=== PATIENT | female | born 1965 | race Caucasian/White ===

== ENCOUNTER 2016-11-16 12:27 | Outpatient (CLI) | payer MEDICARE, OTHER ==
[2016-09-21 18:38] VITALS: BP 132/68
== END 2016-11-16 12:30 ==
LOC: LAB 12:27
PROVIDERS: ATTEND Internal Medicine Cardiovascular Disease
DX: Z51.81 Encounter for therapeutic drug level monitoring (principal); Z79.01 Long term (current) use of anticoagulants; Z95.2 Presence of prosthetic heart valve
CPT/HCPCS: 36415; 85610

== ENCOUNTER 2016-12-06 14:09 | Outpatient (CLI) | payer MEDICARE, OTHER ==
[2016-09-21 18:38] VITALS: BP 132/68
== END 2016-12-06 14:20 ==
LOC: LAB 14:09
PROVIDERS: ATTEND Internal Medicine Cardiovascular Disease
DX: Z51.81 Encounter for therapeutic drug level monitoring (principal); Z79.01 Long term (current) use of anticoagulants; Z95.2 Presence of prosthetic heart valve
CPT/HCPCS: 36415; 85610

== ENCOUNTER 2016-12-26 12:11 | Outpatient (CLI) | payer MEDICARE, OTHER ==
[2016-09-21 18:38] VITALS: BP 132/68
== END 2016-12-26 12:12 ==
LOC: LAB 12:11
PROVIDERS: ATTEND Internal Medicine Cardiovascular Disease
DX: Z51.81 Encounter for therapeutic drug level monitoring (principal); Z79.01 Long term (current) use of anticoagulants; Z95.2 Presence of prosthetic heart valve
CPT/HCPCS: 36415; 85610

== ENCOUNTER 2017-01-24 14:11 | Outpatient (CLI) | payer MEDICARE, OTHER ==
[2016-09-21 18:38] VITALS: BP 132/68
== END 2017-01-24 14:12 ==
LOC: LAB 14:11
PROVIDERS: ATTEND Internal Medicine Cardiovascular Disease
DX: Z51.81 Encounter for therapeutic drug level monitoring (principal); Z79.01 Long term (current) use of anticoagulants; Z95.2 Presence of prosthetic heart valve
CPT/HCPCS: 36415; 85610

== ENCOUNTER 2017-02-14 13:14 | Outpatient (CLI) | payer MEDICARE, OTHER ==
[2016-09-21 18:38] VITALS: BP 132/68
== END 2017-02-14 13:15 ==
LOC: LAB 13:14
PROVIDERS: ATTEND Internal Medicine Cardiovascular Disease
DX: Z51.81 Encounter for therapeutic drug level monitoring (principal); Z79.01 Long term (current) use of anticoagulants; Z95.2 Presence of prosthetic heart valve
CPT/HCPCS: 36415; 85610

== ENCOUNTER 2017-02-22 09:48 | Outpatient (CLI) | payer MEDICARE, OTHER ==
[2016-09-21 18:38] VITALS: BP 132/68
== END 2017-02-22 09:50 ==
LOC: LAB 09:48
PROVIDERS: ATTEND Internal Medicine Cardiovascular Disease
DX: Z51.81 Encounter for therapeutic drug level monitoring (principal); Z79.01 Long term (current) use of anticoagulants; Z95.2 Presence of prosthetic heart valve
CPT/HCPCS: 36415; 85610

== ENCOUNTER 2017-03-01 15:47 | Outpatient (CLI) | payer MEDICARE, OTHER ==
[2016-09-21 18:38] VITALS: BP 132/68
--- NOTE | 2017-03-13 11:06 | OP Clinic Progress Note ---
REFERRING PHYSICIAN: Dr. Dee Ko REASON FOR VISIT: This 51-year-old is seen with epistaxis on the left side. She does have a left nasal septal deviation. She takes Coumadin for a mitral valve. I cauterized the left nasal septum with silver nitrate. I did this very lightly and mildly. I have also shown her how to keep cotton with antibiotic ointment on it for ongoing care. PLAN: She will follow up in about 2 weeks in the office. cc: Dr. Dee HORTON
== END 2017-03-01 15:50 ==
LOC: ENT 15:47
PROVIDERS: ATTEND Otolaryngology
DX: Z51.81 Encounter for therapeutic drug level monitoring (principal); Z79.01 Long term (current) use of anticoagulants; R04.0 Epistaxis
CPT/HCPCS: G0463

== ENCOUNTER 2017-03-08 08:05 | Outpatient (CLI) | payer MEDICARE, OTHER ==
[2016-09-21 18:38] VITALS: BP 132/68
== END 2017-03-08 08:06 ==
LOC: LAB 08:05
PROVIDERS: ATTEND Internal Medicine Cardiovascular Disease
DX: Z51.81 Encounter for therapeutic drug level monitoring (principal); Z79.01 Long term (current) use of anticoagulants; Z95.2 Presence of prosthetic heart valve
CPT/HCPCS: 36415; 85610

== ENCOUNTER 2017-03-28 12:18 | Outpatient (CLI) | payer MEDICARE, OTHER ==
[2016-09-21 18:38] VITALS: BP 132/68
== END 2017-03-28 12:20 ==
LOC: CARD 12:18
PROVIDERS: ATTEND Internal Medicine Cardiovascular Disease
DX: Z95.2 Presence of prosthetic heart valve (principal)
CPT/HCPCS: G0463

== ENCOUNTER 2017-03-29 13:38 | Outpatient (CLI) | payer MEDICARE, OTHER ==
[2016-09-21 18:38] VITALS: BP 132/68
== END 2017-03-29 13:40 ==
LOC: LAB 13:38
PROVIDERS: ATTEND Internal Medicine Cardiovascular Disease
DX: Z95.2 Presence of prosthetic heart valve (principal); Z79.01 Long term (current) use of anticoagulants
CPT/HCPCS: 36415; 85610

== ENCOUNTER 2017-04-14 12:59 | Outpatient (CLI) | payer MEDICARE, OTHER ==
[2016-09-21 18:38] VITALS: BP 132/68
== END 2017-04-14 13:00 ==
LOC: LAB 12:59
PROVIDERS: ATTEND Internal Medicine Cardiovascular Disease
DX: Z95.2 Presence of prosthetic heart valve (principal); Z79.01 Long term (current) use of anticoagulants
CPT/HCPCS: 36415; 85610

== ENCOUNTER 2017-05-01 14:47 | Outpatient (CLI) | payer MEDICARE, OTHER ==
[2016-09-21 18:38] VITALS: BP 132/68
== END 2017-05-01 15:00 ==
LOC: LAB 14:47
PROVIDERS: ATTEND Internal Medicine Cardiovascular Disease
DX: Z95.2 Presence of prosthetic heart valve (principal)
CPT/HCPCS: 36415; 85610

== ENCOUNTER 2017-05-04 09:42 | Outpatient (CLI) | payer MEDICARE, OTHER ==
[2016-09-21 18:38] VITALS: BP 132/68
[2017-05-04 10:03] LABS: BASOPHILS % 0.7 (0.0-1.5); EOSINOPHILS % 1.7 % (0.0-6.8); MEAN CORPUSCULAR HEMOGLOBIN 27.6 pg (28.0-34.0); MEAN CORPUSCULAR VOLUME 85.3 fl (80.0-100.0); MONOCYTES % 9.1 % (0.0-11.0)
[2017-05-04 10:32] LABS: eGFR (African) > 60; eGFR (Non-African) > 60
== END 2017-05-04 10:00 ==
LOC: LAB 09:42
PROVIDERS: ATTEND Family Medicine
DX: R63.4 Abnormal weight loss (principal)
CPT/HCPCS: 36415; 80053; 84443; 85025

== ENCOUNTER 2017-05-30 11:14 | Outpatient (CLI) | payer MEDICARE, OTHER ==
[2016-09-21 18:38] VITALS: BP 132/68
== END 2017-05-30 11:15 ==
LOC: LAB 11:14
PROVIDERS: ATTEND Internal Medicine Cardiovascular Disease
DX: Z95.2 Presence of prosthetic heart valve (principal)
CPT/HCPCS: 36415; 85610

== ENCOUNTER 2017-06-09 15:04 | Outpatient (CLI) | payer MEDICARE, OTHER ==
[2016-09-21 18:38] VITALS: BP 132/68
[2017-06-09 15:59] LABS: eGFR (African) > 60; eGFR (Non-African) > 60
== END 2017-06-09 15:05 ==
LOC: LAB 15:04
PROVIDERS: ATTEND Family Medicine
DX: R63.4 Abnormal weight loss (principal)
CPT/HCPCS: 36415; 80048

== ENCOUNTER 2017-06-12 07:59 | Outpatient (CLI) | payer MEDICARE, OTHER ==
[2016-09-21 18:38] VITALS: BP 132/68
--- NOTE | 2017-06-12 14:51 | Diagnostic Imaging Report ---
TAMMIE GOLDEN [facility] [address] [facility] [address] [place], [place]. [address] Report Submission Date: Jun 12, 2017 12:29:58 PM CDT Patient Study Name: SARAH VANG Date: Jun 12, 2017 9:49:31 AM CDT Modality Type: CT\SR Gender: F Description: CT CHEST, ABD & PELVIS W/ CON : 63 Institution: [facility] Physician: TAMMIE GOLDEN Examination: CT chest/abdomen/pelvis History: ChWeight loss Comparison exams: None available Technique: CT chest/abdomen/pelvis with contrast protocol Findings: Chest: Scattered apical emphysematous changes. Bilateral posterior and lung base atelectasis. Minimal lung base scarring. No evidence for spiculated lesion or suspicious nodule. No posterior pleural thickening. Anterior mediastinum and sammy do not demonstrate pathologic adenopathy or suspicious mass. Thoracic aorta demonstrates peripheral atherosclerotic disease. Cardiac silhouette not enlarged. Osseous structures demonstrate degenerative type changes. Sternotomy wires. Sagital reconstruction demonstrates numerous mid thoracic anterior compression deformities. Lower neck structures without evidence for mass/ lesion. No axillary region pathologic adenopathy Abdomen/pelvis: Liver, spleen, adrenals, kidneys and pancreas are without gross irregularity. No abnormal enhancement. Surgical clips gallbladder fossa. Abdominal aorta demonstrates peripheral atherosclerotic disease. No periaortic adenopathy. Bowel mucosa/lumen without irregularity. Stool and air throughout the large bowel limits sensitivity. No mesenteric inflammatory changes. No free fluid. Osseous structures demonstrate degenerative changes. T12 superior endplates narrowing - identified on sagittal reconstruction. Impression: No evidence for thoracic or abdominal mass /lesion. No evidence for pathologic appearing adenopathy. Thoracic vertebral body compression deformities: Chronicity indeterminate without older exams. Limited evaluation of the bowel due to technique. If concern exist for bowel being etiology for weight loss - recommend obtaining colonoscopy. Electronically signed on Jun 12, 2017 12:29:58 PM CDT by: Pineda HORTON
== END 2017-06-12 08:00 ==
LOC: RAD 07:59
PROVIDERS: ATTEND Family Medicine
DX: R63.4 Abnormal weight loss (principal)
CPT/HCPCS: 36415; 71260; 74177; 85610; Q9966; A9698

== ENCOUNTER 2017-06-21 10:40 | Outpatient (CLI) | payer MEDICARE, OTHER ==
[2016-09-21 18:38] VITALS: BP 132/68
== END 2017-06-21 10:42 ==
LOC: LAB 10:40
PROVIDERS: ATTEND Internal Medicine Cardiovascular Disease
DX: Z95.2 Presence of prosthetic heart valve (principal)
CPT/HCPCS: 36415; 85610

== ENCOUNTER 2017-07-05 10:51 | Outpatient (CLI) | payer MEDICARE, OTHER ==
[2016-09-21 18:38] VITALS: BP 132/68
== END 2017-07-05 10:52 ==
LOC: LAB 10:51
PROVIDERS: ATTEND Internal Medicine Cardiovascular Disease
DX: Z95.2 Presence of prosthetic heart valve (principal)
CPT/HCPCS: 36415; 85610

== ENCOUNTER 2017-07-19 13:02 | Outpatient (CLI) | payer MEDICARE, OTHER ==
[2016-09-21 18:38] VITALS: BP 132/68
== END 2017-07-19 13:03 ==
LOC: LAB 13:02
PROVIDERS: ATTEND Internal Medicine Cardiovascular Disease
DX: Z95.2 Presence of prosthetic heart valve (principal)
CPT/HCPCS: 36415; 85610

== ENCOUNTER 2017-08-02 13:16 | Outpatient (CLI) | payer MEDICARE, OTHER ==
[2016-09-21 18:38] VITALS: BP 132/68
== END 2017-08-02 13:17 ==
LOC: LAB 13:16
PROVIDERS: ATTEND Family Medicine
DX: R11.0 Nausea (principal); R63.4 Abnormal weight loss
CPT/HCPCS: 36415; 82784; 83516

== ENCOUNTER 2017-08-10 11:54 | Outpatient (CLI) | payer MEDICARE, OTHER ==
[2016-09-21 18:38] VITALS: BP 132/68
== END 2017-08-10 11:55 ==
LOC: LAB 11:54
PROVIDERS: ATTEND Internal Medicine Cardiovascular Disease
DX: Z95.2 Presence of prosthetic heart valve (principal)
CPT/HCPCS: 36415; 85610

== ENCOUNTER 2017-08-14 13:47 | Outpatient (CLI) | payer MEDICARE, OTHER ==
[2016-09-21 18:38] VITALS: BP 132/68
== END 2017-08-14 13:50 ==
LOC: LAB 13:47
PROVIDERS: ATTEND Internal Medicine Cardiovascular Disease
DX: Z95.2 Presence of prosthetic heart valve (principal)
CPT/HCPCS: 36415; 85610

== ENCOUNTER 2017-08-17 12:20 | Outpatient (CLI) | payer MEDICARE, OTHER ==
[2016-09-21 18:38] VITALS: BP 132/68
== END 2017-08-17 12:21 ==
LOC: LAB 12:20
PROVIDERS: ATTEND Internal Medicine Cardiovascular Disease
DX: Z95.2 Presence of prosthetic heart valve (principal)
CPT/HCPCS: 36415; 85610

== ENCOUNTER 2017-08-21 11:08 | Outpatient (CLI) | payer MEDICARE, OTHER ==
[2016-09-21 18:38] VITALS: BP 132/68
== END 2017-08-21 11:10 ==
LOC: LAB 11:08
PROVIDERS: ATTEND Internal Medicine Cardiovascular Disease
DX: Z95.2 Presence of prosthetic heart valve (principal); Z79.01 Long term (current) use of anticoagulants
CPT/HCPCS: 36415; 85610

== ENCOUNTER 2017-08-30 12:33 | Outpatient (CLI) | payer MEDICARE, OTHER ==
[2016-09-21 18:38] VITALS: BP 132/68
== END 2017-08-30 12:34 ==
LOC: LAB 12:33
PROVIDERS: ATTEND Internal Medicine Cardiovascular Disease
DX: Z95.2 Presence of prosthetic heart valve (principal)
CPT/HCPCS: 36415; 85610

== ENCOUNTER 2017-09-14 12:28 | Outpatient (CLI) | payer MEDICARE, OTHER ==
[2016-09-21 18:38] VITALS: BP 132/68
== END 2017-09-14 12:30 ==
LOC: LAB 12:28
PROVIDERS: ATTEND Internal Medicine Cardiovascular Disease
DX: Z95.2 Presence of prosthetic heart valve (principal); Z79.01 Long term (current) use of anticoagulants
CPT/HCPCS: 36415; 85610

== ENCOUNTER 2017-09-26 11:38 | Outpatient (CLI) | payer MEDICARE, OTHER ==
[2016-09-21 18:38] VITALS: BP 132/68
== END 2017-09-26 11:40 ==
LOC: CARD 11:38
PROVIDERS: ATTEND Internal Medicine Cardiovascular Disease
DX: I48.91 Unspecified atrial fibrillation (principal); I34.0 Nonrheumatic mitral (valve) insufficiency; I35.1 Nonrheumatic aortic (valve) insufficiency; I73.9 Peripheral vascular disease, unspecified; I65.29 Occlusion and stenosis of unspecified carotid artery; E78.5 Hyperlipidemia, unspecified; Z79.899 Other long term (current) drug therapy
CPT/HCPCS: G0463

== ENCOUNTER 2017-09-28 11:44 | Outpatient (CLI) | payer MEDICARE, OTHER ==
[2016-09-21 18:38] VITALS: BP 132/68
== END 2017-09-28 13:28 ==
LOC: LAB 11:44
PROVIDERS: ATTEND Internal Medicine Cardiovascular Disease
DX: Z95.2 Presence of prosthetic heart valve (principal)
CPT/HCPCS: 36415; 85610

== ENCOUNTER 2017-10-26 09:26 | Outpatient (CLI) | payer MEDICARE, OTHER ==
[2016-09-21 18:38] VITALS: BP 132/68
== END 2017-10-26 12:20 ==
LOC: LAB 09:26
PROVIDERS: ATTEND Internal Medicine Cardiovascular Disease
DX: Z95.2 Presence of prosthetic heart valve (principal); Z51.81 Encounter for therapeutic drug level monitoring
CPT/HCPCS: 36415; 85610

== ENCOUNTER 2017-11-08 15:40 | Outpatient (CLI) | payer MEDICARE, OTHER ==
[2016-09-21 18:38] VITALS: BP 132/68
[2017-11-08 17:06] LABS: BASOPHILS % 0.8 (0.0-1.5); EOSINOPHILS % 1.7 % (0.0-6.8); MEAN CORPUSCULAR HEMOGLOBIN 28.8 pg (28.0-34.0); MEAN CORPUSCULAR VOLUME 85.9 fl (80.0-100.0); MONOCYTES % 5.7 % (0.0-11.0); NEUTROPHILS # 3.2 # k/uL (1.4-7.7)
[2017-11-08 17:58] LABS: eGFR (African) > 60; eGFR (Non-African) > 60
== END 2017-11-08 15:45 ==
LOC: LAB 15:40
PROVIDERS: ATTEND Family Medicine
DX: R10.84 Generalized abdominal pain (principal)
CPT/HCPCS: 36415; 80053; 85025

== ENCOUNTER 2017-11-20 11:41 | Outpatient (CLI) | payer MEDICARE, OTHER ==
[2016-09-21 18:38] VITALS: BP 132/68
== END 2017-11-20 11:42 ==
LOC: LAB 11:41
PROVIDERS: ATTEND Internal Medicine Cardiovascular Disease
DX: Z95.2 Presence of prosthetic heart valve (principal); Z79.01 Long term (current) use of anticoagulants
CPT/HCPCS: 36415; 85610

== ENCOUNTER 2017-12-04 14:26 | Outpatient (CLI) | payer MEDICARE, OTHER ==
[2016-09-21 18:38] VITALS: BP 132/68
== END 2017-12-04 14:28 ==
LOC: LAB 14:26
PROVIDERS: ATTEND Internal Medicine Cardiovascular Disease
DX: Z95.2 Presence of prosthetic heart valve (principal); Z79.01 Long term (current) use of anticoagulants
CPT/HCPCS: 36415; 85610

== ENCOUNTER 2017-12-12 10:05 | Outpatient (CLI) | payer MEDICARE, OTHER ==
[2016-09-21 18:38] VITALS: BP 132/68
== END 2017-12-12 10:06 ==
LOC: LAB 10:05
PROVIDERS: ATTEND Internal Medicine Cardiovascular Disease
DX: Z95.2 Presence of prosthetic heart valve (principal); Z51.81 Encounter for therapeutic drug level monitoring
CPT/HCPCS: 36415; 85610

== ENCOUNTER 2017-12-18 14:13 | Outpatient (CLI) | payer MEDICARE, OTHER ==
[2016-09-21 18:38] VITALS: BP 132/68
== END 2017-12-18 14:14 ==
LOC: LAB 14:13
PROVIDERS: ATTEND Internal Medicine Cardiovascular Disease
DX: Z79.01 Long term (current) use of anticoagulants (principal); Z95.2 Presence of prosthetic heart valve
CPT/HCPCS: 36415; 85610

== ENCOUNTER 2018-01-08 14:33 | Outpatient (CLI) | payer MEDICARE, OTHER ==
[2016-09-21 18:38] VITALS: BP 132/68
== END 2018-01-08 14:35 ==
LOC: LAB 14:33
PROVIDERS: ATTEND Internal Medicine Cardiovascular Disease
DX: Z95.2 Presence of prosthetic heart valve (principal); Z79.899 Other long term (current) drug therapy
CPT/HCPCS: 36415; 85610

== ENCOUNTER 2018-01-30 12:31 | Outpatient (CLI) | payer MEDICARE, OTHER ==
[2016-09-21 18:38] VITALS: BP 132/68
== END 2018-01-30 12:33 ==
LOC: LAB 12:31
PROVIDERS: ATTEND Internal Medicine Cardiovascular Disease
DX: Z95.2 Presence of prosthetic heart valve (principal); Z79.01 Long term (current) use of anticoagulants
CPT/HCPCS: 36415; 85610

== ENCOUNTER 2018-02-13 11:58 | Outpatient (CLI) | payer MEDICARE, OTHER ==
[2016-09-21 18:38] VITALS: BP 132/68
== END 2018-02-13 12:00 ==
LOC: LAB 11:58
PROVIDERS: ATTEND Internal Medicine Cardiovascular Disease
DX: Z51.81 Encounter for therapeutic drug level monitoring (principal); Z95.2 Presence of prosthetic heart valve
CPT/HCPCS: 36415; 85610

== ENCOUNTER 2018-02-26 13:12 | Outpatient (CLI) | payer MEDICARE, OTHER ==
[2016-09-21 18:38] VITALS: BP 132/68
== END 2018-02-26 13:14 ==
LOC: LAB 13:12
PROVIDERS: ATTEND Internal Medicine Cardiovascular Disease
DX: Z95.2 Presence of prosthetic heart valve (principal); Z79.899 Other long term (current) drug therapy
CPT/HCPCS: 36415; 85610

== ENCOUNTER 2018-03-12 12:28 | Outpatient (CLI) | payer MEDICARE, OTHER ==
[2016-09-21 18:38] VITALS: BP 132/68
== END 2018-03-12 12:30 ==
LOC: LAB 12:28
PROVIDERS: ATTEND Internal Medicine Cardiovascular Disease
DX: Z79.01 Long term (current) use of anticoagulants (principal); Z95.2 Presence of prosthetic heart valve
CPT/HCPCS: 36415; 85610

== ENCOUNTER 2018-04-10 11:57 | Outpatient (CLI) | payer MEDICARE, OTHER ==
[2016-09-21 18:38] VITALS: BP 132/68
== END 2018-04-10 12:00 ==
LOC: LAB 11:57
PROVIDERS: ATTEND Internal Medicine Cardiovascular Disease
DX: Z79.01 Long term (current) use of anticoagulants (principal); Z95.2 Presence of prosthetic heart valve
CPT/HCPCS: 36415; 85610

== ENCOUNTER 2018-05-14 11:12 | Outpatient (CLI) | payer MEDICARE, OTHER ==
[2016-09-21 18:38] VITALS: BP 132/68
== END 2018-05-14 11:13 ==
LOC: LAB 11:12
PROVIDERS: ATTEND Internal Medicine Cardiovascular Disease
DX: Z95.2 Presence of prosthetic heart valve (principal); Z79.01 Long term (current) use of anticoagulants
CPT/HCPCS: 36415; 85610

== ENCOUNTER 2018-05-17 10:41 | Outpatient (CLI) | payer MEDICARE, OTHER ==
[2016-09-21 18:38] VITALS: BP 132/68
== END 2018-05-17 10:43 ==
LOC: LAB 10:41
PROVIDERS: ATTEND Internal Medicine Cardiovascular Disease
DX: Z95.2 Presence of prosthetic heart valve (principal); Z79.01 Long term (current) use of anticoagulants
CPT/HCPCS: 36415; 85610

== ENCOUNTER 2018-05-21 14:42 | Outpatient (CLI) | payer MEDICARE, OTHER ==
[2016-09-21 18:38] VITALS: BP 132/68
== END 2018-05-21 14:43 ==
LOC: LAB 14:42
PROVIDERS: ATTEND Internal Medicine Cardiovascular Disease
DX: Z95.2 Presence of prosthetic heart valve (principal); Z79.01 Long term (current) use of anticoagulants
CPT/HCPCS: 36415; 85610

== ENCOUNTER 2018-06-06 09:09 | Outpatient (CLI) | payer MEDICARE, OTHER ==
[2016-09-21 18:38] VITALS: BP 132/68
== END 2018-06-06 09:10 ==
LOC: LAB 09:09
PROVIDERS: ATTEND Internal Medicine Cardiovascular Disease
DX: Z95.2 Presence of prosthetic heart valve (principal); Z79.01 Long term (current) use of anticoagulants
CPT/HCPCS: 36415; 85610

== ENCOUNTER 2018-06-25 08:12 | Outpatient (CLI) | payer MEDICARE, OTHER ==
[2016-09-21 18:38] VITALS: BP 132/68
== END 2018-06-25 08:13 ==
LOC: LAB 08:12
PROVIDERS: ATTEND Internal Medicine Cardiovascular Disease
DX: Z95.2 Presence of prosthetic heart valve (principal); Z79.01 Long term (current) use of anticoagulants
CPT/HCPCS: 36415; 85610

== ENCOUNTER 2018-07-09 10:40 | Outpatient (CLI) | payer MEDICARE, OTHER ==
[2016-09-21 18:38] VITALS: BP 132/68
== END 2018-07-09 10:42 ==
LOC: LAB 10:40
PROVIDERS: ATTEND Internal Medicine Cardiovascular Disease
DX: Z79.01 Long term (current) use of anticoagulants (principal); Z95.2 Presence of prosthetic heart valve
CPT/HCPCS: 36415; 85610

== ENCOUNTER 2018-07-23 12:24 | Outpatient (CLI) | payer MEDICARE, OTHER ==
[2016-09-21 18:38] VITALS: BP 132/68
== END 2018-07-23 12:25 ==
LOC: LAB 12:24
PROVIDERS: ATTEND Internal Medicine Cardiovascular Disease
DX: Z95.2 Presence of prosthetic heart valve (principal); Z79.01 Long term (current) use of anticoagulants
CPT/HCPCS: 36415; 85610

== ENCOUNTER 2018-08-14 08:31 | Outpatient (CLI) | payer MEDICARE, OTHER ==
[2016-09-21 18:38] VITALS: BP 132/68
== END 2018-08-14 08:32 ==
LOC: LAB 08:31
PROVIDERS: ATTEND Internal Medicine Cardiovascular Disease
DX: Z95.2 Presence of prosthetic heart valve (principal); Z79.01 Long term (current) use of anticoagulants
CPT/HCPCS: 36415; 85610

== ENCOUNTER 2018-08-16 10:00 | Outpatient (CLI) | payer MEDICARE, OTHER ==
[2016-09-21 18:38] VITALS: BP 132/68
== END 2018-08-16 10:03 ==
LOC: LAB 10:00
PROVIDERS: ATTEND Internal Medicine Cardiovascular Disease
DX: Z95.2 Presence of prosthetic heart valve (principal); Z79.01 Long term (current) use of anticoagulants
CPT/HCPCS: 36415; 85610

== ENCOUNTER 2018-08-27 12:37 | Outpatient (CLI) | payer MEDICARE, OTHER ==
[2016-09-21 18:38] VITALS: BP 132/68
== END 2018-08-27 12:40 ==
LOC: LAB 12:37
PROVIDERS: ATTEND Internal Medicine Cardiovascular Disease
DX: Z95.2 Presence of prosthetic heart valve (principal); Z79.01 Long term (current) use of anticoagulants
CPT/HCPCS: 36415; 85610

== ENCOUNTER 2018-10-18 12:44 | Outpatient (CLI) | payer MEDICARE, OTHER ==
[2016-09-21 18:38] VITALS: BP 132/68
== END 2018-10-18 12:45 ==
LOC: LAB 12:44
PROVIDERS: ATTEND Internal Medicine Cardiovascular Disease
DX: Z79.01 Long term (current) use of anticoagulants (principal); Z95.2 Presence of prosthetic heart valve
CPT/HCPCS: 36415; 85610

== ENCOUNTER 2018-11-15 10:31 | Outpatient (CLI) | payer MEDICARE, OTHER ==
[2016-09-21 18:38] VITALS: BP 132/68
== END 2018-11-15 10:40 ==
LOC: LAB 10:31
PROVIDERS: ATTEND Internal Medicine Cardiovascular Disease
DX: Z95.2 Presence of prosthetic heart valve (principal)
CPT/HCPCS: 36415; 85610

== ENCOUNTER 2018-12-12 07:58 | Outpatient (CLI) | payer MEDICARE, OTHER ==
[2016-09-21 18:38] VITALS: BP 132/68
== END 2018-12-12 08:10 ==
LOC: LAB 07:58
PROVIDERS: ATTEND Internal Medicine Cardiovascular Disease
DX: Z95.2 Presence of prosthetic heart valve (principal); Z79.01 Long term (current) use of anticoagulants
CPT/HCPCS: 36415; 85610

== ENCOUNTER 2019-01-03 10:38 | Outpatient (CLI) | payer MEDICARE, OTHER ==
[2016-09-21 18:38] VITALS: BP 132/68
== END 2019-01-03 10:40 ==
LOC: LAB 10:38
PROVIDERS: ATTEND Internal Medicine Cardiovascular Disease
DX: Z95.2 Presence of prosthetic heart valve (principal); Z79.01 Long term (current) use of anticoagulants
CPT/HCPCS: 36415; 85610

== ENCOUNTER 2019-01-17 15:35 | Outpatient (CLI) | payer MEDICARE, OTHER ==
[2016-09-21 18:38] VITALS: BP 132/68
== END 2019-01-17 15:45 ==
LOC: LAB 15:35
PROVIDERS: ATTEND Internal Medicine Cardiovascular Disease
DX: Z95.2 Presence of prosthetic heart valve (principal); Z79.01 Long term (current) use of anticoagulants
CPT/HCPCS: 36415; 85610

== ENCOUNTER 2019-02-04 15:46 | Emergency (ER) | payer MEDICARE, OTHER ==
[2019-02-04] MEDS ORDERED: 0.9 % SODIUM CHLORIDE 500 ML IV ONE (16:10)
--- NOTE | 2019-02-04 16:19 | ED Physician Documentation ---
General Adult - HISTORIAN Historian: patient, child (Son is with patient) - HPI Stated Complaint: vomiting, diarrhea and not feeling well Chief Complaint: General Adult (Multiple medical concerns) Additional Information: Patient is a 53-year-old female that was sent from the clinic for possible dehydration. Patient has an extensive medical history but is still able to work. She works at the [email or web address] at [email or web address]. Her son states that he just got home from [place] yesterday and his mom was laying on the couch. He is not sure when she last ate or drank anything. She has had nausea and vomiting with confusion. Son states that patient has not been able to do simple tasks that she normally does. Patient appears pale, mucous membranes are dry- appears that she gets SOA with exertion. She is tachycardic. Onset: days ago (unsure how long she has not felt well- possibly 2-3 days) Timing: still present, worse Severity: moderate Modifying Factors: nausea, vomiting, confusion - ROS CONST: weakness, chills EYES/ENT: denies: sore throat, nasal drainage CVS/RESP: shortness of breath. denies: cough GI/: problems urinating, vomiting, nausea MS/SKIN/LYMPH: none NEURO/PSYCH: dizziness, difficulty walking - PAST HX Past History: renal disease ( ), other (heart valve disease, PVD, Depression, HLD, hypothyroid, osteoporosis, brain aneurysm, stent in abdomen, hx of blood clot) Surgeries/Procedures: , cholecystectomy, other (BKA, Fem-pop bypass, mechanical valve-CABG, Trigger finger release) Immunizations: UTD. denies: influenza, pneumovax Allergies/Adverse Reactions: Allergies Allergy/AdvReac Type Severity Reaction Status Date / Time atorvastatin calcium Allergy Intermediate Rash Verified 02/04/19 16:09 [From Lipitor] diltiazem Allergy Intermediate Rash Verified 02/04/19 16:09 JACOB Allergy Severe Blister Uncoded 02/04/19 16:09 Home Medications: Ambulatory Orders Medication Instructions Recorded Nitroglycerin [Nitrostat] 0.4 mg SL PRN PRN 12/18/12 Atorvastatin Calcium [Lipitor] 40 mg PO D 07/14/15 Multivitamin [Tab-A-Viv] 1 each PO DAILY 11/22/15 Clopidogrel Bisulfate [Clopidogrel] 75 mg PO DAILY 02/04/19 Gabapentin [Neurontin] 600 mg PO BID 02/04/19 - SOCIAL HX Smoking History: cigarettes, less than 1 pack/day Alcohol Use: none Drug Use: none - FAMILY HX Family History: No - VITAL SIGNS Vital Signs: Vital Signs Temp Pulse Resp BP Pulse Ox 98.2 F 85 19 142/65 99 02/04/19 16:02 02/04/19 16:02 02/04/19 16:02 02/04/19 16:02 02/04/19 16:02 Progress - Progress Progress: 17:30 patient feeling much better after IVF- family is pleased with improvement- pt would like to go home- family will be with her today ED Results Lab/Radiology - Radiology Radiology Impressions: Examination: PA and lateral chest. History: Evaluate lung christianson. SHORT OF BREATH. FEVER Comparison exam: None provided. Findings: PA and lateral views of the chest demonstrates a normal cardiac and mediastinal silhouette. Sternotomy wires. Valve replacement. Chronic interstitial changes. No focal infiltrate. No blunting of the costophrenic margins. Articular degenerative. Impression: Chronic interstitial changes. No acute appearing pulmonary process. Electronically signed on Feb 04, 2019 4:47:28 PM CDT by: Pineda Graham EKG [id number] - Orders Orders: ED Orders Category Date Time Status Continuous EKG monitoring Q30M Care 02/04/19 16:10 Active Continuous Pulse Oximetry Q30M Care 02/04/19 16:[address] IV Lock 1T Care 02/04/19 16:10 Active CHEST 2VIEW [RAD] Stat Exams 02/04/19 Ordered BLOOD CULTURE Stat Lab 02/04/19 Ordered CBC/PLATELET/DIFF Routine Lab 02/04/19 16:10 Ordered CMP Routine Lab 02/04/19 16:10 Ordered CREATINE KINASE Routine Lab 02/04/19 16:10 Ordered INFLUENZA A&B Stat Lab 02/04/19 Uncollected TROPONIN I (cTnI) Stat Lab 02/04/19 16:10 Ordered URINALYSIS Routine Lab 02/04/19 Ordered NORMAL SALINE @ 500 MLS/HR(500ml BOLUS) Med 02/04/19 16:10 Ordered 0.9 % Sodium Chloride [Normal Saline] 500 ml IV NOW EKG WITH COMPARISON Stat Ther 02/04/19 16:10 Ordered General Adult Physical Exam - PHYSICAL EXAM GENERAL APPEARANCE: moderate distress EENT: eye inspection normal, ENT inspection normal, dry mucous membranes NECK: normal inspection, supple RESPIRATORY: other (decreased bibasilar) CVS: heart sounds normal, equal pulses, tachycardia ABDOMEN: soft, normal bowel sounds, no distension, non-tender SKIN: warm/dry, pallor EXTREMITIES: non-tender NEURO: motor nml, sensation nml, depressed mood/affect Discharge Clincal Impression: Dehydration Referrals: Boogie Stoddard MD [Primary Care Provider] - 2 Days Additional Instructions: Increase fluid intake- Pedialyte, Gatorade, Water Follow up with PCP as needed Work excuse given Condition: Good Disposition: 01 HOME, SELF-CARE Decision to Admit: NO Decision Time: 17:42
[2019-02-04 16:42] LABS: eGFR (Non-African) > 60
--- NOTE | 2019-02-04 16:49 | Diagnostic Imaging Report ---
RUBINA CHAN [facility] [address] [facility] [address]. [address] Report Submission Date: Feb 04, 2019 4:47:28 PM CDT Patient Study Name: SARAH BARFIELD Date: Feb 04, 2019 4:16:09 PM CDT MRN: [id number] Modality Type: DX Gender: F Description: CHEST 2VIEW : 63 Institution: [facility] Physician: RUBINA CHAN Examination: PA and lateral chest. History: Evaluate lung christianson. SHORT OF BREATH. FEVER Comparison exam: None provided. Findings: PA and lateral views of the chest demonstrates a normal cardiac and mediastinal silhouette. Sternotomy wires. Valve replacement. Chronic interstitial changes. No focal infiltrate. No blunting of the costophrenic margins. Articular degenerative. Impression: Chronic interstitial changes. No acute appearing pulmonary process. Electronically signed on Feb 04, 2019 4:47:28 PM CDT by: Pineda HORTON
[2019-02-04 17:04] LABS: BASOPHILS % 1.2 (0.0-1.5); EOSINOPHILS % 0.7 % (0.0-6.8); MEAN CORPUSCULAR HEMOGLOBIN 27.8 pg (28.0-34.0); MONOCYTES % 10.2 % (0.0-11.0); NEUTROPHILS # 3.6 # k/uL (1.4-7.7)
[2019-02-04 17:33] VITALS: BP 149/67
[2019-02-04] MEDS ORDERED: PHYTONADIONE 10 MG/1 ML IM ONE (18:19)
== END 2019-02-04 17:50 | disposition home or self-care (01) ==
LOC: ED 15:46
DX: E86.0 Dehydration (principal); I51.9 Heart disease, unspecified; Z86.718 Personal history of other venous thrombosis and embolism
CPT/HCPCS: 36415; 71046; 80053; 82550; 84484; 85025; 85610; 87040; 87400; 93005; 96360; 96372; 99283; 99284; J3430; J7060; S1016

== ENCOUNTER 2019-02-07 11:33 | Outpatient (CLI) | payer MEDICARE, OTHER | END 2019-02-07 11:35 | LOC: LAB 11:33 | PROVIDERS: ATTEND Internal Medicine Cardiovascular Disease | DX: Z51.81 Encounter for therapeutic drug level monitoring (principal); Z79.01 Long term (current) use of anticoagulants; Z95.2 Presence of prosthetic heart valve | CPT/HCPCS: 36415; 85610 ==

== ENCOUNTER 2019-02-13 08:46 | Outpatient (CLI) | payer MEDICARE, OTHER | END 2019-02-13 08:48 | LOC: LAB 08:46 | PROVIDERS: ATTEND Internal Medicine Cardiovascular Disease | DX: Z79.01 Long term (current) use of anticoagulants (principal); Z95.2 Presence of prosthetic heart valve | CPT/HCPCS: 36415; 85610 ==

== ENCOUNTER 2019-02-27 12:28 | Outpatient (CLI) | payer MEDICARE, OTHER | END 2019-02-27 12:30 | LOC: LAB 12:28 | PROVIDERS: ATTEND Internal Medicine Cardiovascular Disease | DX: Z79.01 Long term (current) use of anticoagulants (principal); Z95.2 Presence of prosthetic heart valve | CPT/HCPCS: 36415; 85610 ==

== ENCOUNTER 2019-03-11 11:47 | Outpatient (CLI) | payer MEDICARE, OTHER | END 2019-03-11 11:50 | LOC: LAB 11:47 | PROVIDERS: ATTEND Internal Medicine Cardiovascular Disease | DX: Z95.2 Presence of prosthetic heart valve (principal) | CPT/HCPCS: 36415; 85610 ==

== ENCOUNTER 2019-03-26 13:00 | Outpatient (CLI) | payer MEDICARE, OTHER | END 2019-03-26 13:03 | LOC: LAB 13:00 | PROVIDERS: ATTEND Internal Medicine Cardiovascular Disease | DX: Z79.01 Long term (current) use of anticoagulants (principal); Z95.2 Presence of prosthetic heart valve | CPT/HCPCS: 36415; 85610 ==

== ENCOUNTER 2019-04-28 13:32 | Emergency (ER) | payer MEDICARE, OTHER | END 2019-04-28 14:10 | LOC: ED 13:32 | DX: R10.30 Lower abdominal pain, unspecified (principal) | CPT/HCPCS: 99281; 99282 ==

== ENCOUNTER 2019-06-25 08:35 | Outpatient (CLI) | payer MEDICARE, OTHER | END 2019-06-25 08:37 | LOC: LAB 08:35 | PROVIDERS: ATTEND Internal Medicine Cardiovascular Disease | DX: Z51.81 Encounter for therapeutic drug level monitoring (principal); Z79.01 Long term (current) use of anticoagulants; Z95.2 Presence of prosthetic heart valve | CPT/HCPCS: 36415; 85610 ==

== ENCOUNTER 2019-07-02 08:49 | Outpatient (CLI) | payer MEDICARE, OTHER ==
[2019-07-02 10:15] LABS: HDL 57 mg/dL (>40); eGFR (Non-African) > 60
== END 2019-07-02 08:51 ==
LOC: LAB 08:49
PROVIDERS: ATTEND Family Medicine
DX: E03.9 Hypothyroidism, unspecified (principal)
CPT/HCPCS: 36415; 80053; 80061; 84443

== ENCOUNTER 2019-07-23 11:34 | Outpatient (CLI) | payer MEDICARE, OTHER | END 2019-07-23 11:36 | LOC: LAB 11:34 | PROVIDERS: ATTEND Internal Medicine Cardiovascular Disease | DX: Z79.01 Long term (current) use of anticoagulants (principal); Z51.81 Encounter for therapeutic drug level monitoring; Z95.2 Presence of prosthetic heart valve | CPT/HCPCS: 36415; 85610 ==

== ENCOUNTER 2019-08-15 11:59 | Outpatient (CLI) | payer MEDICARE, OTHER | END 2019-08-15 12:10 | LOC: LAB 11:59 | PROVIDERS: ATTEND Internal Medicine Cardiovascular Disease | DX: Z51.81 Encounter for therapeutic drug level monitoring (principal); Z79.01 Long term (current) use of anticoagulants; Z95.2 Presence of prosthetic heart valve | CPT/HCPCS: 36415; 85610 ==

== ENCOUNTER 2019-09-02 11:35 | Outpatient (CLI) | payer MEDICARE, OTHER | END 2019-09-02 11:40 | LOC: LAB 11:35 | PROVIDERS: ATTEND Internal Medicine Cardiovascular Disease | DX: Z79.01 Long term (current) use of anticoagulants (principal); Z51.81 Encounter for therapeutic drug level monitoring; Z95.2 Presence of prosthetic heart valve | CPT/HCPCS: 36415; 85610 ==

== ENCOUNTER 2019-09-17 16:15 | Outpatient (CLI) | payer MEDICARE, OTHER | END 2019-09-17 16:20 | LOC: LAB 16:15 | PROVIDERS: ATTEND Internal Medicine Cardiovascular Disease | DX: Z51.81 Encounter for therapeutic drug level monitoring (principal); Z79.01 Long term (current) use of anticoagulants; Z95.2 Presence of prosthetic heart valve | CPT/HCPCS: 36415; 85610 ==

== ENCOUNTER 2019-10-02 19:51 | Emergency (ER) | payer MEDICARE, OTHER ==
--- NOTE | 2019-10-02 20:03 | ED Physician Documentation ---
Chest Pain - HISTORIAN Historian: patient - HPI Stated Complaint: shortness of breath, heart palpitation Chief Complaint: Chest Pain Additional Information: Patient presents to ED with a 24 hour history of increasing shortness of breath, heart palpitations and chest pressure. Patient has history of atrial fibrillation (on Sotalol) and valve replacement (on coumadin). 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 Patient's family member states she was complaining of heart palpitations 3-4 weeks ago and has been under a lot of stress at work. Patient states she has been taking all of her medications as prescribed. She denies any lower extremity edema. Onset: hours (12) Timing: gradual onset Duration: waxing, waning Last known Well Date: 10/02/19 Last Known Well Time: 08:00 Context: activity Severity: moderate Quality: pressure Chest Pain Radiation: no radiation Chest Pain Signs/Symptoms: palpitations. denies: nausea Worsened By: exertion Relieved By: rest - ROS CONST: none MS/LYMPH: denies: ankle swelling GI/: denies: vomiting, nausea EYES/ENT: denies: problems with vision SKIN/ENDO: denies: recent weight change NEURO/PSYCH: denies: headache - PAST HX ME risk factors: A-Fib, other (mechanical heart valve replacment) DVT/PE Risk Factors: none TAD/AAA risk factors: none Neuro deficit: none GI disease: none Lung disease: COPD Surgeries/Procedures: other (mechanical valve replacement) Allergies/Adverse Reactions: Allergies Allergy/AdvReac Type Severity Reaction Status Date / Time atorvastatin calcium Allergy Intermediate Rash Verified 10/02/19 20:14 [From Lipitor] diltiazem Allergy Intermediate Rash Verified 10/02/19 20:14 JACOB Allergy Severe Blister Uncoded 10/02/19 20:14 Home Medications: Ambulatory Orders Medication Instructions Recorded Nitroglycerin [Nitrostat] 0.4 mg SL PRN PRN 12/18/12 Atorvastatin Calcium [Lipitor] 40 mg PO D 07/14/15 Multivitamin [Tab-A-Viv] 1 each PO DAILY 11/22/15 Clopidogrel Bisulfate [Clopidogrel] 75 mg PO DAILY 02/04/19 Gabapentin [Neurontin] 600 mg PO BID 02/04/19 - SOCIAL HX Smoking History: cigarettes, less than 1 pack/day Alcohol Use: none Drug Use: none - FAMILY HX Family HX: none - VITAL SIGNS Vital Signs: Vital Signs Temp Pulse Resp BP Pulse Ox 149/67 02/04/19 17:31 - REVIEWED ASSESSMENTS Nursing Assessment Reviewed: Yes Vitals Reviewed: Yes Progress - Progress Progress: [address] Ko. Recommends giving a liter of fluid. Hold coumadin for 2 days. And follow up with Dr. Black, cardiology, as soon as possible. [address] Ko's plan with patient. Patient states she is feeling much better and agrees with plan. 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 Interstitial markings are increased. There is no infiltrate, effusion or pneumothorax. Thoracic spine is demineralized. Thoracic vertebral body compression fractures are present. Impression: No active pulmonary disease. Electronically signed on Oct 02, 2019 8:36:45 PM MANAGER [employer]EL by: Les Gutierrez - Orders Orders: ED Orders Category Date Time Status Place IV Lock 1T Care 10/02/19 20:01 Active CHEST 2VIEW [RAD] Stat Exams 10/02/19 Ordered NT BNP Stat Lab 10/02/19 Ordered TROPONIN I Stat Lab 10/02/19 Ordered EKG WITH COMPARISON Stat Ther 10/02/19 Ordered Chest Pain Physical Exam - EXAM General Appearance: no acute distress, alert EENT: LESIA Respiratory: no resp. distress, chest non-tender, other (crackles right base) CVS: irregularly irreg. rhythm Abdomen: soft, normal bowel sounds Skin: warm/dry, normal color Extremities: non-tender, no evidence of injury Neuro: oriented X3, mood/affect nml Discharge Clincal Impression: Heart palpitations Referrals: Dee Ko MD [Primary Care Provider] - 2 Days Additional Instructions: 1. Hold Coumadin on 10/03/19 and 10/04/19. Restart on 10/05/19. Recheck INR on 10/07/19 2. Drink plenty of fluids to maintain proper hydration. Avoid caffeine, energy drinks and alcohol 3. Follow up with Dr. Black, Cardiology, as soon as possible 4. Follow up with Dr. Ko within 1 week 5. Return to ER for new or worsening symptoms Condition: Stable Disposition: 01 HOME, SELF-CARE Decision to Admit: NO Date of Decison to Admit: 10/02/19 Decision Time: 10:00
--- NOTE | 2019-10-02 20:41 | Diagnostic Imaging Report ---
PATIENT MR#: [id number] PATIENT PATIENT NAME: SARAH VANG DATE OF : 1965 REFERRING PHYSICIAN: Ana Laura Sanford EXAM DATE: 10/02/2019 ACCESSION NUMBER: [id number] EXAM DESCRIPTION: CHEST 2VIEW Chest, PA and lateral History: Shortness of breath Findings: Sternal wires and a prosthetic heart valve are present. Interstitial markings are increased . There is no infiltrate, effusion or pneumothorax. Thoracic spine is demineralized. Thoracic vertebral body compre ssion fractures are present. Impression: No active pulmonary disease. Read by: Dr. Les Gutierrez Transcribed by: Transcribed Date: Electronically signed by: Dr. Les Gutierrez Date signed: 10/02/2019 8:40:53 PM
[2019-10-02] MEDS ORDERED: 0.9 % SODIUM CHLORIDE 1,000 ML IV ONE (21:13)
[2019-10-02 21:58] VITALS: BP 121/61
[2019-10-03 06:40] LABS: BASOPHILS % 0.4 % (0.0-1.5); NEUTROPHILS # 4.3 # k/uL (1.4-7.7); eGFR (Non-African) > 60
== END 2019-10-02 21:45 | disposition home or self-care (01) ==
LOC: ED 19:51
DX: R00.2 Palpitations (principal)
CPT/HCPCS: 71046; 80053; 83880; 84484; 85025; 85610; 93005; 96360; 99282; 99284; J7030; S1016

== ENCOUNTER 2019-10-08 11:46 | Outpatient (CLI) | payer MEDICARE, OTHER | END 2019-10-08 11:51 | LOC: LAB 11:46 | PROVIDERS: ATTEND Internal Medicine Cardiovascular Disease | DX: Z79.01 Long term (current) use of anticoagulants (principal) | CPT/HCPCS: 36415; 85610 ==

== ENCOUNTER 2019-10-29 11:48 | Outpatient (CLI) | payer MEDICARE, OTHER | END 2019-10-29 11:53 | LOC: LAB 11:48 | PROVIDERS: ATTEND Internal Medicine Cardiovascular Disease | DX: Z51.81 Encounter for therapeutic drug level monitoring (principal); Z79.01 Long term (current) use of anticoagulants; Z95.2 Presence of prosthetic heart valve | CPT/HCPCS: 36415; 85610 ==

== ENCOUNTER → 2019-11-15 | Outpatient (CLI) | payer MEDICARE, OTHER | LOC: LAB 14:16 | PROVIDERS: ATTEND Internal Medicine Cardiovascular Disease | DX: Z51.81 Encounter for therapeutic drug level monitoring (principal); Z79.01 Long term (current) use of anticoagulants; Z95.2 Presence of prosthetic heart valve | CPT/HCPCS: 36415; 85610 ==